=== PATIENT | male | born 1990 | race Caucasian/White ===

== ENCOUNTER 2020-04-04 15:26 | Emergency (ER) | payer OTHER ==
[~2020-04-04 15:26] MED LIST: ASPIRIN 325MG325 MG PO; ASPIRIN EC81 MG PO; ATORVASTATIN CA20 MG PO; BRILINTA 90 MG90 MG PO; BUSPAR 10MG10 MG PO; BUSPIRONE HCL15 MG PO; CLOPIDOGREL75 MG PO; COZAAR 25MG TAB25 MG PO; ELIQUIS 5 MG TAB5 MG PO; FUROSEMIDE20 MG PO; KEFLEX CAP 500500 MG PO; LIPITOR40 MG PO; LOPRESSOR 25 MG25 MG PO; LOPRESSOR 50 MG50 MG PO; METOPROLOL SUCC25 MG PO; NICOTINE PATCH1 EAC2 TOP; NITROGLYCERIN0.4 MG SL; SEROQUEL50 MG PO; VIBRAMYCIN100 MG PO; VISTARIL 50 MG50 MG PO; ZIPRASIDONE HCL20 MG PO
== END 2020-04-04 16:58 | disposition home or self-care (01) ==
LOC: ER1 15:26
DX: R07.9 Chest pain, unspecified (principal); I25.10 Atherosclerotic heart disease of native coronary artery without angina pectoris; F17.210 Nicotine dependence, cigarettes, uncomplicated
CPT/HCPCS: 93005; 99284

== ENCOUNTER 2020-06-18 16:25 | Emergency (ER) | payer OTHER ==
[~2020-06-18] VITALS: Ht 167.6 cm; Wt 68.0 kg
[2020-06-18 17:06] LABS: HEMOGLOBIN 14.8 gm/dl (14.0-17.5); RED BLOOD COUNT 4.63 M/UL (4.20-5.50); WHITE BLOOD COUNT 5.8 K/UL (4.5-11.0)
[2020-06-18 17:42] LABS: BUN/CREATININE RATIO 3 (0-10)
[2020-06-19 04:08] LABS: HEMOGLOBIN 13.6 gm/dl (14.0-17.5); RED BLOOD COUNT 4.26 M/UL (4.20-5.50); WHITE BLOOD COUNT 5.8 K/UL (4.5-11.0)
[2020-06-19 06:37] LABS: BUN/CREATININE RATIO 4 (0-10)
== END 2020-06-19 14:15 | disposition home or self-care (01) ==
LOC: ER1 16:25 → CDU 20:45 → ER1 20:45 → CDU 06-19 14:15
PROVIDERS: Internal Medicine; Nurse Practitioner
DX: R07.89 Other chest pain (principal); I25.10 Atherosclerotic heart disease of native coronary artery without angina pectoris; I10 Essential (primary) hypertension; E78.5 Hyperlipidemia, unspecified; F20.9 Schizophrenia, unspecified; F17.210 Nicotine dependence, cigarettes, uncomplicated; Z20.822 Contact with and (suspected) exposure to COVID-19; F19.10 Other psychoactive substance abuse, uncomplicated; Z95.5 Presence of coronary angioplasty implant and graft; Z82.49 Family history of ischemic heart disease and other diseases of the circulatory system; Z91.013 Allergy to seafood; Z79.899 Other long term (current) drug therapy; Z79.82 Long term (current) use of aspirin
CPT/HCPCS: 71045; 80053; 80307; 81001; 82550; 82553; 83735; 83874; 84484; 85025; 93005; 99285; G0378; U0002

== ENCOUNTER 2020-08-02 01:07 | Emergency (ER) | payer OTHER ==
[2020-08-02 05:26] LABS: HEMOGLOBIN 13.5 gm/dl (14.0-17.5); RED BLOOD COUNT 4.35 M/UL (4.20-5.50); WHITE BLOOD COUNT 9.6 K/UL (4.5-11.0)
[2020-08-02 05:30] LABS: BUN/CREATININE RATIO 20 (0-10)
== END 2020-08-02 10:31 | disposition home or self-care (01) ==
LOC: ER1 01:07
PROVIDERS: Physician Assistant Medical
DX: F20.9 Schizophrenia, unspecified (principal); R82.81 Pyuria; F12.90 Cannabis use, unspecified, uncomplicated; I51.9 Heart disease, unspecified; Z20.822 Contact with and (suspected) exposure to COVID-19; Z79.899 Other long term (current) drug therapy
CPT/HCPCS: 80053; 80307; 81001; 85025; 99285; G0480; U0002

== ENCOUNTER 2020-08-28 17:30 | Emergency (ER) | payer OTHER ==
[2020-08-28 21:40] LABS: HEMOGLOBIN 13.9 gm/dl (14.0-17.5); RED BLOOD COUNT 4.29 M/UL (4.20-5.50); WHITE BLOOD COUNT 7.5 K/UL (4.5-11.0)
[2020-08-28 21:59] LABS: BUN/CREATININE RATIO 2 (0-10)
== END 2020-08-29 03:00 | disposition home or self-care (01) ==
LOC: ER1 17:30
PROVIDERS: Family Medicine
DX: F25.9 Schizoaffective disorder, unspecified (principal); I25.10 Atherosclerotic heart disease of native coronary artery without angina pectoris; F19.10 Other psychoactive substance abuse, uncomplicated; F17.200 Nicotine dependence, unspecified, uncomplicated; I48.91 Unspecified atrial fibrillation; Z79.82 Long term (current) use of aspirin; Z79.02 Long term (current) use of antithrombotics/antiplatelets; Z91.013 Allergy to seafood
CPT/HCPCS: 71045; 80053; 82550; 82553; 83874; 84484; 85025; 93005; 99285

== ENCOUNTER 2020-08-29 14:30 | Emergency (ER) | payer OTHER | END 2020-08-29 17:30 | disposition left against medical advice (07) | LOC: ER1 14:30 | DX: Z53.21 Procedure and treatment not carried out due to patient leaving prior to being seen by health care provider (principal) ==

== ENCOUNTER 2020-08-31 14:05 | Emergency (ER) | payer OTHER ==
[2020-08-31 14:31] LABS: HEMOGLOBIN 12.2 gm/dl (14.0-17.5); WHITE BLOOD COUNT 6.8 K/UL (4.5-11.0)
[2020-08-31 14:32] LABS: RED BLOOD COUNT 3.85 M/UL (4.20-5.50)
[2020-08-31 14:52] LABS: BUN/CREATININE RATIO 8 (0-10)
== END 2020-08-31 15:13 | disposition left against medical advice (07) ==
LOC: ER1 14:05
PROVIDERS: Emergency Medicine
DX: R07.89 Other chest pain (principal); F17.200 Nicotine dependence, unspecified, uncomplicated
CPT/HCPCS: 71045; 80053; 82550; 82553; 83735; 83874; 84484; 85025; 93005; 99285; G0480

== ENCOUNTER 2020-09-01 19:40 | Emergency (ER) | payer OTHER | END 2020-09-01 21:30 | disposition home or self-care (01) | LOC: ER1 19:40 | DX: F20.0 Paranoid schizophrenia (principal); I51.9 Heart disease, unspecified; F17.210 Nicotine dependence, cigarettes, uncomplicated | CPT/HCPCS: 99283 ==

== ENCOUNTER 2021-03-06 01:15 | Emergency (ER) | payer OTHER | END 2021-03-06 02:00 | disposition home or self-care (01) | LOC: ER1 01:15 | DX: Z00.00 Encounter for general adult medical examination without abnormal findings (principal); F17.200 Nicotine dependence, unspecified, uncomplicated | CPT/HCPCS: 99282 ==